=== PATIENT | female | born 1995 ===

== ENCOUNTER 2018-06-24 15:50 | Emergency (ER) | payer BC ==
[2018-06-24 16:03] VITALS: RESP 18
[2018-06-24] MEDS ORDERED: Alum-Mag Hydrox-Simethicone Susp (30 mL) PO ONE (18:49)
[2018-06-24] MEDS ORDERED: Alum-Mag Hydrox-Simethicone Susp (30 mL) ONE (19:18)
--- NOTE | 2018-06-24 19:20 | ED PDOC ---
HPI: Chest Pain Time Seen by Provider: 06/24/18 18:18 Chief Complaint (Nursing): Abdominal Pain Chief Complaint (Provider): Chest Pain History Per: Patient History/Exam Limitations: no limitations Onset/Duration Of Symptoms: Days (x1) Current Symptoms Are (Timing): Still Present Quality: Burning, Pressure Additional Complaint(s): 23 year old female presents to the ED for evaluation of sternal chest pain described as burning and pressure-like radiating up and down associated with nausea and decreased appetite since 1900 last night, worsening today at work. She denies any meds prior to arrival, any history of similar symptoms, cough, shortness of breath, vomiting, diarrhea, urinary symptoms, hematuria, leg swelling, calf pain, recent travel, and sick contacts. LNMP: 06/03/2018 PMD: Dylan Watkins Past Medical History Reviewed: Historical Data, Nursing Documentation, Vital Signs Vital Signs: Last Vital Signs Temp 98 F 06/24/18 15:57 Pulse 92 H 06/24/18 15:57 Resp 18 06/24/18 15:57 BP 121/83 06/24/18 15:57 Pulse Ox 99 06/24/18 15:57 - Medical History Other PMH: abdominal hernia - Surgical History Surgical History: No Surg Hx - Family History Family History: States: Unknown Family Hx - Social History Current smoker - smoking cessation education provided: No Alcohol: Social Drugs: Denies - Home Medications Home Medications: Ambulatory Orders Medication Instructions Recorded Naproxen/Esomeprazole Mag [Vimovo 1 each PO BID #20 tab.ir. 06/24/18 500-20 mg Tablet] - Allergies Allergies/Adverse Reactions: Allergies Allergy/AdvReac Type Severity Reaction Status Date / Time No Known Allergies Allergy Verified 06/24/18 16:04 RUPERT Risk Score for UA/NSTEMI - RUPERT Risk Score Age > 64: NO 3 or more CAD Risk Factors: NO Known CAD (Stenosis greater than 50%): NO Aspirin use in past 7 days: NO Severe Angina: NO EKG ST changes greater than 0.5mm: NO Positive Cardiac Marker: NO RUPERT Score: 0 Risk %: 5% Review of Systems ROS Statement: Except As Marked, All Systems Reviewed And Found Negative Constitutional: Negative for: Fever Cardiovascular: Positive for: Chest Pain (sternal, radiating up and down, burning and pressure like) Respiratory: Negative for: Cough, Shortness of Breath Gastrointestinal: Positive for: Nausea, Other (decreased appetite). Negative for: Vomiting, Diarrhea Genitourinary Female: Negative for: Dysuria, Frequency, Incontinence, Hematuria Musculoskeletal: Negative for: Other (calf pain or leg swelling) Physical Exam - Reviewed Nursing Documentation Reviewed: Yes Vital Signs Reviewed: Yes - Physical Exam Comments: GENERAL APPEARANCE: Patient is awake, alert, oriented x 3, in no acute distress, resting comfortably. SKIN: Warm, dry; (-) cyanosis. EYES: (-) conjunctival pallor, (-) scleral icterus. ENMT: Mucous membranes moist. Airway patent, (-) stridor. NECK: Supple, FROM CHEST AND RESPIRATORY: (+) reproducible sternal chest wall tenderness. (-) rales, (-) rhonchi, (-) wheezes; breath sounds equal bilaterally. Respirations even and nonlabored, speaking in full sentences. HEART AND CARDIOVASCULAR: (-) irregularity ABDOMEN AND GI: Soft, (-) distention. Bowel sounds active x4; (+) epigastric tenderness. (-) guarding, (-) rebound, (-) palpable masses, (-) CVA tenderness. EXTREMITIES: (-) deformity, (-) edema, (-) calf tenderness (+) distal pulses. NEURO AND PSYCH: Mental status as above; (-) focal findings. Gait: steady. Speech: clear. (-) facial asymmetry (-) aphasia. - Laboratory Results Result Diagrams: 06/24/18 21:30 06/24/18 21:30 Urine POC: Negative - ECG O2 Sat by Pulse Oximetry: 99 (RA) Pulse Ox Interpretation: Normal Medical Decision Making Medical Decision Making: Initial Impression: chest wall pain vs acid reflux Time: 1849 Initial Plan: --EKG --U-preg --CXR --Maalox Plus 30ml PO --Famotidine 40mg PO --Toradol 30mg IM --Reevaluation 1919 EKG shows NSR at 91 bpm, QTc at 452, and no ST elevation. CXR shows NAD, read by Juan GARCÍA. 2029 On re-evaluation, patient with persistent symptoms. Vitals stable. IV access, CBC, CMP, Lipase, and Troponin ordered for further evaluation. 1L NS ordered. 2200 Patient sleeping comfortably on re-evaluation. Labs reviewed. CBC with slight leukocytosis otherwise unremarkable. Lipase WNL. Troponin negative. 2300 On re-evaluation, patient reports improvement of symptoms. On exam, patient remains AAOx3, in no acute distress. Lungs clear to auscultation, cardiac RRR, abdomen soft, non-tender, repeat neuro exam shows no focal findings. Vitals stable. Lab/Diagnostic results d/w the patient in great detail. Diagnosis of chest wall pain vs GERD d/w the patient. Based on history, exam and diagnostic results, plan will be for outpatient follow up with clinic/PMD/GI. Patient instructed to follow-up with pmd / referral provided / the clinic in 1- 2 days without fail. Advised to take medication as prescribed. Return to the emergency room at any time for any new or worsening symptoms. Patient states she fully agrees with and understands discharge instructions. States that she agrees with the plan and disposition. Verbalized and repeated discharge instructions and plan. I have given the patient opportunity to ask any additional questions. Scribe Attestation: Documented by Priscilla Ag, acting as a scribe for Umm Martinez PA-C. Provider Scribe Attestation: All medical record entries made by the Scribe were at my direction and personally dictated by me. I have reviewed the chart and agree that the record a ccurately reflects my personal performance of the history, physical exam, medical decision making, and the department course for this patient. I have also personally directed, reviewed, and agree with the discharge instructions and disposition. Disposition - Clinical Impression Clinical Impression: Chest wall pain, GERD (gastroesophageal reflux disease) - Patient ED Disposition Is Patient to be Admitted: No Counseled Patient/Family Regarding: Studies Performed, Diagnosis, Need For Followup, Rx Given - Disposition Referrals: Sterling Morales MD, PhD [Staff Provider] - Dylan Watkins MD [Family Provider] - Disposition: Routine/Home Disposition Time: 23:00 Condition: STABLE Additional Instructions: The emergency medical care you received today was directed at your acute symptoms. If you were prescribed any medication, please fill it and take as directed. It may take several days for your symptoms to resolve. Return to the Emergency Department if your symptoms worsen, do not improve, or if you have any other problems. Please contact your doctor in 2 days for re-evaluation and follow up / or call one of the physicians/clinics you have been referred to that are listed on the Patient Visit Information form that is included in your discharge packet. Bring any paperwork you were given at discharge with you along with any medications you are taking to your follow up visit. Our treatment cannot replace ongoing med ical care by a primary care provider (PCP) outside of the emergency department. Prescriptions: Naproxen/Esomeprazole Mag [Vimovo Dr 500-20 mg Tablet] 1 each PO BID #20 tab.ir .dr Instructions: Costochondritis, Chest Pain That Is Not Caused by the Heart (DC), Acid Reflux (Gastroesophageal Reflux Disease), Adult (DC) Forms: Blood cell Storage (Georgian), [facility] ED School/Work Excuse Print Language: UKRAINIAN - POA Present On Arrival: None Results - Lab Results Lab Results: 06/24/18 06/24/18 21:30 21:30 WBC 12.2 H RBC 4.29 Hgb 12.3 Hct 37.3 MCV 86.9 MCH 28.6 MCHC 32.9 L RDW 13.8 Plt Count 301 MPV 9.4 Neut % (Auto) 64.2 Lymph % (Auto) 23.4 [place] % (Auto) 8.5 Eos % (Auto) 3.3 Baso % (Auto) 0.6 Neut # (Auto) 7.8 H Lymph # (Auto) 2.9 [place] # (Auto) 1.0 H Eos # (Auto) 0.4 Baso # (Auto) 0.1 Sodium 137 Potassium 4.4 Chloride 103 Carbon Dioxide 26 Anion Gap 12 BUN 12 Creatinine 0.5 L Est GFR ( Amer) > 60 Est GFR (Non-Af Amer) > 60 Random Glucose 82 Calcium 9.5 Total Bilirubin 0.6 AST 30 ALT 33 Alkaline Phosphatase 69 Troponin I < 0.0120 Total Protein 8.5 H Albumin 4.6 Globulin 3.9 Albumin/Globulin Ratio 1.2 Lipase 75
[2018-06-24] MEDS ORDERED: Sodium Chloride 0.9% 1,000 ML IV ONE (20:38)
[2018-06-24 21:49] LABS: BASO # 0.1 K/uL (0.0-0.2); BASO % 0.6 % (0.0-2.0); EOS # 0.4 K/uL (0.0-0.7); EOS % 3.3 % (0.0-4.0); HEMOGLOBIN 12.3 g/dL (12.0-16.0); LYMPH # 2.9 K/uL (1.0-4.3); LYMPH % 23.4 % (20.0-40.0); MEAN CELL VOLUME 86.9 fl (81.0-99.0); MEAN CORPUSCULAR HEMOGLOBIN 28.6 pg (27.0-31.0); MEAN CORPUSCULAR HGB CONC 32.9 g/dL (33.0-37.0); MEAN PLATELET VOLUME 9.4 fl (7.2-11.7); MONO % 8.5 % (0.0-10.0); NEUT # 7.8 K/uL (1.8-7.0); NEUT % 64.2 % (50.0-75.0); NRBC % 0.1 % (0.0-0.0); RBC 4.29 Mil/uL (3.80-5.20); RED CELL DISTRIBUTION WIDTH 13.8 % (11.5-14.5); WHITE BLOOD COUNT 12.2 K/uL (4.8-10.8)
[2018-06-24 22:04] LABS: ALB/GLOB RATIO 1.2 (1.0-2.1); ALBUMIN 4.6 g/dL (3.5-5.0); BLOOD UREA NITROGEN 12 mg/dl (7-17); CALCIUM 9.5 mg/dL (8.4-10.2); GFR NON-AFRICAN AMERICAN > 60; LIPASE 75 U/L (23-300)
[2018-06-24 22:22] LABS: ALT/SGPT 33 U/L (9-52); AST/SGOT 30 U/L (14-36)
[2018-06-24 23:01] VITALS: BP 117/65; PULSE 72; TEMP 97.8
[2018-06-24 23:14] VITALS: O2SAT 99
--- NOTE | 2018-06-25 09:11 | RAD ---
Date of service: 06/24/2018 HISTORY: sternal chest pain COMPARISON: No prior. TECHNIQUE: Chest PA and lateral FINDINGS: LUNGS: No active pulmonary disease. PLEURA: No significant pleural effusion identified. No pneumothorax apparent. CARDIOVASCULAR: No aortic atherosclerotic calcification present. Normal cardiac size. No pulmonary vascular congestion. OSSEOUS STRUCTURES: No significant abnormalities. VISUALIZED UPPER ABDOMEN: Normal. OTHER FINDINGS: None. IMPRESSION: No acute cardiopulmonary disease appreciated.
--- NOTE | 2018-06-25 20:56 | CARD ---
APPROVED REPORT Date of service: 06/24/2018 EKG Measurement Heart [id number] <Conclusion> Normal sinus rhythm Normal ECG
== END 2018-06-24 23:23 | disposition home or self-care (01) ==
LOC: H.ER 15:50
DX: R07.89 Other chest pain (principal); K21.9 Gastro-esophageal reflux disease without esophagitis
CPT/HCPCS: 71046; 80053; 81025; 83690; 84484; 85025; 93005; 96372; 99284; J1885; J7040